=== PATIENT | female | born 1995 | race American Indian/Alaskan Native ===

== ENCOUNTER 2020-08-10 21:55 | Emergency (ER) | payer SELFPAY ==
[2020-08-11] MEDS ORDERED: ONDANSETRON 4 MG ODT TAB PO ONE (00:49)
[2020-08-11] MEDS ORDERED: IBUPROFEN 600 MG TAB PO ONE (00:49)
[2020-08-11] MEDS ORDERED: HYDROcodone/ACETAMINOPHEN 7.5-325MG TAB PO ONE (00:49)
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
[2020-08-11 05:43] VITALS: BP 128/78
== END 2020-08-11 04:15 | disposition home or self-care (01) ==
LOC: ED 21:55
DX: S63.502A Unspecified sprain of left wrist, initial encounter (principal); G44.319 Acute post-traumatic headache, not intractable; M62.830 Muscle spasm of back; Z79.899 Other long term (current) drug therapy; V49.49XA Driver injured in collision with other motor vehicles in traffic accident, initial encounter; Y92.410 Unspecified street and highway as the place of occurrence of the external cause; Y93.89 Activity, other specified; Y99.8 Other external cause status
CPT/HCPCS: 70450; 72100; Q0162